=== PATIENT | female | born 1985 | race Hispanic/Latino ===

== ENCOUNTER 2018-03-11 10:46 | Emergency (ER) | payer SELFPAY ==
[2018-03-11] MEDS ORDERED: LIDOCAINE VISCOUS 2% SOLN 15 ML UDC ONE (14:14)
[2018-03-11] MEDS ORDERED: MAGNES/ALUMIN/SIMET 30ML UCUP ONE (14:15)
--- NOTE | 2018-03-11 14:40 | ER ---
Nurse's Notes [facility] Name: Sissy Duarte Age: 32 yrs Sex: Female : 1985 Arrival Date: 03/11/2018 Time: 10:49 Bed 9 Private MD: Diagnosis: Epigastric pain Presentation: 03/11 11:09 Presenting complaint: Patient states: epigastric pain since yesterday, hx of gastris, iw took omeprazole with no relief, denies n/v/d, feels like burning pain. Transition of care: patient was not received from another setting of care. Onset of symptoms was March 10, 2018. Risk Assessment: Do you want to hurt yourself or someone else? Patient reports no desire to harm self or others. Initial Sepsis Screen: Does the patient meet any 2 criteria? No. Patient's initial sepsis screen is negative. Does the patient have a suspected source of infection? No. Patient's initial sepsis screen is negative. Care prior to arrival: None. 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 - Social history:: Smoking status: Patient uses tobacco products, smokes one pack cigarettes per day. - Ebola Screening: : Patient negative for fever greater than or equal to 101.5 degrees Fahrenheit, and additional compatible Ebola Virus Disease symptoms Patient denies exposure to infectious person Patient denies travel to an Ebola-affected area in the 21 days before illness onset No symptoms or risks identified at this time. Screenin:31 Abuse screen: Denies threats or abuse. Denies injuries from another. Nutritional iw screening: No deficits noted. Tuberculosis screening: No symptoms or risk factors identified. Fall Risk None identified. Assessment: 13:30 General: Appears in no apparent distress. comfortable, Behavior is calm, cooperative. iw Pain: Complains of pain in epigastric area Pain currently is 10 out of 10 on a pain scale. Neuro: Level of Consciousness is awake, alert, obeys commands, Oriented to person, place, time, situation. Cardiovascular: Patient's skin is warm and dry. Respiratory: Respiratory effort is even, unlabored, Respiratory pattern is regular. GI: Bowel sounds present X 4 quads. Abd is soft X 4 quads Reports upper abdominal pain, indigestion. Derm: Skin is pink, warm \T\ dry. normal. Musculoskeletal: Range of motion: intact in all extremities. Vital Signs: 11:10 BP 114 / 74; Pulse 62; Resp 16; Temp 98.2; Pulse Ox 98% ; Weight 63.5 kg; Height 5 ft. iw 7 in. (170.18 cm); Pain 10/10; 11:10 Body Mass Index 21.93 (63.50 kg, 170.18 cm) iw ED Course: 10:49 Patient arrived in ED. rg4 11:10 Triage completed. iw 11:10 Arm band placed on. iw 13:25 Patient's name was called from ER lobby. No response. dm5 13:29 Ann Rao, RN is Primary Nurse. iw 13:32 Isidoro uNll PA is PHCP. cp 13:32 Isidoro Greene MD is Attending Physician. cp 14:38 Sadiq Schmidt MD is Referral Physician. cp 14:46 No provider procedures requiring assistance completed. Patient did not have IV access hj during this emergency room visit. 14:47 Patient has correct armband on for positive identification. Placed in gown. Bed in low hj position. Call light in reach. Side rails up X 1. Administered Medications: 14:15 Drug: GI Cocktail without - (Maalox Suspension 30 ml, Lidocaine Liquid 2 % 15 iw ml) Route: PO; 14:47 Follow up: Response: No adverse reaction hj Outcome: 14:40 Discharge ordered by MD. cp 14:46 Discharged to home ambulatory. hj 14:46 Condition: stable 14:46 Discharge instructions given to patient, Instructed on discharge instructions, follow up and referral plans. medication usage, Demonstrated understanding of instructions, follow-up care, medications, Prescriptions given X 1. 14:47 Patient left the ED. hj Signatures: Leslie Darby RN RN dm5 Ann Rao RN RN iw Elton Thomas RN RN Isidoro Null PA PA Janee Mccord rg4
--- NOTE | 2018-03-11 14:40 | EDPHYS ---
Physician Documentation [facility] Name: Sissy Duarte Age: 32 yrs Sex: Female : 1985 Arrival Date: 03/11/2018 Time: 10:49 Bed 9 Private MD: ED Physician Isidoro Greene HPI: 03/11 14:05 This 32 yrs old Female presents to ER via Ambulatory with complaints of cp Abdominal Pain. 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 - Social history:: Smoking status: Patient uses tobacco products, smokes one pack cigarettes per day. - Ebola Screening: : Patient negative for fever greater than or equal to 101.5 degrees Fahrenheit, and additional compatible Ebola Virus Disease symptoms Patient denies exposure to infectious person Patient denies travel to an Ebola-affected area in the 21 days before illness onset No symptoms or risks identified at this time. Vital Signs: 11:10 BP 114 / 74; Pulse 62; Resp 16; Temp 98.2; Pulse Ox 98% ; Weight 63.5 kg; Height 5 ft. iw 7 in. (170.18 cm); Pain 10/10; 11:10 Body Mass Index 21.93 (63.50 kg, 170.18 cm) iw MDM: 13:32 Patient medically screened. cp 03/11 14:19 Order name: Urine Dipstick--Ancillary (enter results) bd 03/11 14:19 Order name: Urine --Ancillary (enter results) bd 03/11 13:58 Order name: Urine Dipstick-Ancillary (obtain specimen); Complete Time: 14:05 cp 03/11 13:58 Order name: Urine Test (obtain specimen); Complete Time: 14:05 cp Administered Medications: 14:15 Drug: GI Cocktail without - (Maalox Suspension 30 ml, Lidocaine Liquid 2 % 15 iw ml) Route: PO; 14:47 Follow up: Response: No adverse reaction hj Disposition: 03/12 13:34 Co-signature as Attending Physician, Isidoro Greene MD I agree with the assessment and kun plan of care. Disposition: 03/11/18 14:40 Discharged to Home. Impression: Epigastric pain. - Condition is Stable. - Discharge Instructions: Gastritis, Adult, Gastroesophageal Reflux Disease, Adult. - Prescriptions for Protonix 40 mg Oral Tablet, Delayed Release (E.C.) - take 1 tablet by ORAL route once daily As needed; 10 tablet. - Work release form, Medication Reconciliation Form, Thank You Letter, Antibiotic Education, Prescription Opioid Use form. - Follow up: Sadiq Schmidt MD; When: 5 - 6 days; Reason: if pain or symptoms continue. - Problem is new. - Symptoms have improved. Addendum: 03/22/2018 03:00 Addendum: HPI. Patient is 32 y/o female with complaints of epigastric abdominal pain. c p Pain started yesterday and is described as burning. Addendum: ROS: Constitutional: negative for poor PO intake, body aches, chills, fever. Eyes: negative for for injury, pain, redness, and discharge. ENT: negative for drainage from ear(s), ear pain, sore throat, difficulty swallowing, difficulty handling secretions. Cardiovascular: negative for chest pain, edema, palpitations. Respiratory: negative for cough, shortness of breath, wheezing. Abdomen/GI: positive for abdominal pain of epigastric region, negative for nausea, vomiting, diarrhea, constipation, black/tarry stool, rectal bleeding. Back: negative for pain at rest, pain with movement, radiated pain. Skin: negative for rash, cellulitis. Neuro: negative for altered mental status, headache, weakness. All other systems are negative.. 03:05 Addendum: EXAM: Head/Face: Normocephalic, atraumatic. Constitutional: The patient c p appears in no acute distress, alert, awake, non-toxic, well developed, well nourished, uncomfortable. Eyes: Periorbital structures: appear normal, Conjunctiva: normal, no exudate, no injection, Sclera: no appreciated abnormality, Lids and lashes: appear normal, bilaterally. ENT: External ear(s): are unremarkable, Nose: is normal, Mouth: Lips: moist, Oral mucosa: moist, Posterior pharynx: is normal, airway is patent, no erythema, no exudate. Chest/axilla: Inspection: normal, Palpation: is normal, no crepitus, no tenderness. Cardiovascular: Rate: normal, Rhythm: regular. Respiratory: the patient does not display signs of respiratory distress, Respirations: normal, no use of accessory muscles, no retractions, no splitting, no tachypnea, labored breathing, is not present, Breath sounds: are clear throughout, no decreased breath sounds, no stridor, no wheezing. Abdomen/GI: Inspection: abdomen appears normal, Bowel sounds: active, all quadrants, palpation: soft, in all quadrants, moderate abdominal tenderness, in the epigastric area, rebound tenderness, is not appreciated, voluntary or involuntary guarding, is not appreciated. Skin: cellulitis, is not appreciated, no rash present. 03:05 Addendum: Differential diagnosis: gastritis, pancreatitis, GERD, cholecystitis, c p cholelithiasis. Addendum: Data Reviewed: vital signs, nurses notes.. Addendum: VSS. pain improved after administration of meds. Will discharge to home for continued monitoring. Special discussion: Based on the patient's Hx, exam and Dx evaluation, there is no indication for emergent surgery or inpatient Tx. It is understood by the patient/guardian that if the Sx's persist or worsen they need to return immediately for re-evaluation.. Signatures: Dispatcher [employer] EDIsidoro Dahl MD MD cha Williams, Irene, RN RN iw Joaquin, Henry, RN RN hj Page, Corey, PA PA cp Corrections: (The following items were deleted from the chart) 03/11 14:47 14:40 03/11/2018 14:40 Discharged to Home. Impression: Epigastric pain. Condition is hj Stable. Forms are Medication Reconciliation Form, Thank You Letter, Antibiotic Education, Prescription Opioid Use. Follow up: Sadiq Schmidt; When: 5 - 6 days; Reason: if pain or symptoms continue. Problem is new. Symptoms have improved. cp
[2018-03-11 16:04] LABS: Urine Blood 3+ (NEG); Urine Glucose NEGATIVE (NEG); Urine Protein 1+ (NEG); Urine Specific Gravity >1.030 (1.005-1.030)
== END 2018-03-11 14:47 | disposition home or self-care (01) ==
LOC: ER 10:46
DX: R10.13 Epigastric pain (principal); F17.210 Nicotine dependence, cigarettes, uncomplicated
CPT/HCPCS: 81003; 81025; 99283